=== PATIENT | female | born 1980 | race Caucasian/White ===

== ENCOUNTER → 2019-12-11 11:48 | Outpatient (CLI) | payer BC, SELFPAY ==
[2019-12-11 12:24] LABS: Specimen Label NATERA
[2019-12-11 13:13] LABS: Appearance Urine UA CLEAR; Bilirubin Urine UA NEGATIVE (NEGATIVE); Color Urine UA YELLOW; Glucose Urine UA NEGATIVE (Negative); Ketones Urine UA NEGATIVE (NEGATIVE); Leukocyte Esterase Urine UA NEGATIVE (NEGATIVE); Nitrite Urine UA NEGATIVE (Negative); Occult Blood Urine UA TRACE-LYSED (Negative); Protein Urine UA NEGATIVE (Negative); Specific Gravity Urine UA <=1.005 (1.000-1.035); Urobilinogen Urine UA 0.2 E.U./dL (0.2)
[2019-12-11 13:33] LABS: Add Manual Diff / Slide Review NO; Basophils Absolute Auto 0 /uL (0-100); Basophils Percent Auto 0.3 % (0-2); Eosinophils Absolute Auto 0 /uL (0-450); Eosinophils Percent Auto 0.6 % (2-4); Hematocrit 38.4 % (36-46); Hemoglobin 13.2 g/dL (12.0-16.0); Lymphocytes Absolute Auto 800 /uL (1100-4500); Lymphocytes Percent Auto 11.3 % (25-40); Mean Corpuscular HGB Conc 34.3 % (30-36); Mean Corpuscular Hemoglobin 31.5 PG (26-34); Monocytes Absolute Auto 400 /uL (0-900); Monocytes Percent Auto 5.5 % (3-14); Neutrophils Absolute Auto 6100 /uL (1500-7000); Neutrophils Percent Auto 82.3 % (50-75); Platelet Count 264 X10^3/uL (150-400); Red Blood Cell Count 4.17 X10^6/uL (4.0-5.2); Red Cell Distribution Width 12.8 % (11.6-14.8); White Blood Cell Count 7.4 X10^3/uL (4.5-11.0)
[2019-12-11 13:40] LABS: pH Urine UA 6.5 (4.5-8.0)
[2019-12-11 16:09] LABS: Hepatitis B Surface Antigen NEGATIVE s/c (NEGATIVE); Rubella Antibody IgG 18.1 IU/mL (>15)
[2019-12-11 16:26] LABS: HIV 1 & 2 Ab/Ag 4th Gen Combo NEGATIVE (NEGATIVE); Hep C Virus Ab w/Reflex Quant NEGATIVE s/c (NEGATIVE)
[2019-12-13 20:08] LABS: RPR Screen Nonreactive (Nonreactive)
== END ==
PROVIDERS: PCP Obstetrics & Gynecology; Visit Provider Obstetrics & Gynecology
DX: Z34.81 Encounter for supervision of other normal pregnancy, first trimester (principal)
CPT/HCPCS: 36415; 80055; 81003; 86787; 86803; 86850; 86900; 86901; 87086; 87389

== ENCOUNTER → 2020-01-09 09:12 | Outpatient (CLI) | payer BC, SELFPAY ==
[2020-01-15 14:51] LABS: AFP, Serum 47.5 ng/mL; Calc Gestational Age 18; Maternal Weight 166 lbs; Number of Fetuses 1; Prev Pregnancies Down Syndrome NO
== END ==
PROVIDERS: PCP Obstetrics & Gynecology; Referring Provider Obstetrics & Gynecology; Visit Provider Obstetrics & Gynecology
DX: Z34.82 Encounter for supervision of other normal pregnancy, second trimester (principal)
CPT/HCPCS: 36415; 82105

== ENCOUNTER → 2020-01-19 07:44 | Outpatient (CLI) | payer BC, SELFPAY ==
--- NOTE | 2020-01-19 07:45 | DI.US.S_ITS ---
PROCEDURE: US OB >= 14 WEEKS FETUS INDICATIONS: ANATOMY SCAN OUTSIDE/PRIOR DATING DATA: Last menstrual period (LMP): Unknown. LMP-based estimated date of delivery (JULIANA): Unknown. First dating scan (date and location): This examination. Estimated date of delivery (JULIANA) from first dating scan: 06/11/20. TECHNIQUE: Real-time scanning was performed of the fetus, with image documentation and biometric measurements. Endovaginal scanning: Not performed COMPARISON: None. FINDINGS: General: A single living intrauterine gestation is present. Presentation: Breech. Placenta: Placental position is anterior, without previa. Amniotic fluid index: 10.4 cm, normal range is 5-24 cm. heart rate: 144 beats per minute. Maternal cervical canal: 3.4 cm long. Normal lower limit is 2.5 cm. biometrics: Biparietal diameter: 4.8 cm, 20 weeks 4 days Head circumference: 17.4 cm, 20 weeks zero days Abdominal circumference: 14.7 cm, 20 weeks zero days Femur length: 3.0 cm, 19 weeks 2 days Estimated gestational age from initial scan: 19 weeks 3 days Composite gestational age from present scan: 20 weeks zero days Estimated weight and percentile: 308 g, 62nd percentile Measurement variability for biometric dating: +/- 7 days from 14 weeks to 15 weeks 6 days gestation, +/- 10 days from 16 weeks to 21 weeks 6 days gestation, +/- 2 weeks from 22 weeks to 27 weeks 6 days gestation, +/- 3 weeks for 28 weeks gestation or later. weight reference: 4500 g or EFW >90/95% is considered macrosomia or large for gestational age. EFW <10% is small for gestational age. EFW 5% or less is considered intra-uterine growth restriction. Anatomic survey: Neuro: Ventricles are non-dilated at less than 10 mm. Cisterna magna is normal at 3-11 mm. Cerebellum is normal in size and morphology. Nuchal skin fold: Normal at less than 6 mm between 14-21 weeks gestational age. Face: Nose and lips, facial profile are normal. Spine: No evidence for spina bifida. Heart: 4-chambered heart is present, with normal ventricular outflow tracts. Diaphragm: Diaphragm is intact. Stomach: Left-sided stomach is present. Kidneys: No hydronephrosis. Normal is less than 5 mm in 2nd trimester, less than 7 mm in 3rd trimester. Cord: 3-vessel cord has orthotopic insertion. Bladder: Normal in size. Extremities: All 4 extremities identified. IMPRESSION: Single living intrauterine fetus in breech presentation demonstrating expected interval growth. Normal anatomic survey Dictated by: Flynn Martinez M.D. on 01/19/2020 at 17:04 Approved by: Flynn Martinez M.D. on 01/19/2020 at 17:08
== END ==
PROVIDERS: PCP Obstetrics & Gynecology; Referring Provider Obstetrics & Gynecology; Visit Provider Obstetrics & Gynecology
DX: Z34.82 Encounter for supervision of other normal pregnancy, second trimester (principal); Z3A.20 20 weeks gestation of pregnancy
CPT/HCPCS: 76811

== ENCOUNTER → 2020-03-29 09:04 | Outpatient (CLI) | payer BC, SELFPAY ==
[2020-03-29 10:47] LABS: GTT (PREG) 1 Hour PP 50gm Dose 101 mg/dL (76-139)
[2020-03-29 10:50] LABS: Hematocrit 33.8 % (36-46); Hemoglobin 11.7 g/dL (12.0-16.0)
== END ==
PROVIDERS: PCP Obstetrics & Gynecology; Referring Provider Obstetrics & Gynecology; Visit Provider Obstetrics & Gynecology
DX: O26.899 Other specified pregnancy related conditions, unspecified trimester (principal); Z3A.26 26 weeks gestation of pregnancy; Z67.91 Unspecified blood type, Rh negative
CPT/HCPCS: 36415; 82950; 85014; 85018; 86850

== ENCOUNTER → 2020-05-08 13:45 | Outpatient (CLI) | payer BC, SELFPAY ==
[2020-05-09 11:41] LABS: Strep Grp B PCR POS for Grp B Strep
== END ==
PROVIDERS: PCP Obstetrics & Gynecology; Visit Provider Obstetrics & Gynecology
DX: Z34.83 Encounter for supervision of other normal pregnancy, third trimester (principal); Z3A.35 35 weeks gestation of pregnancy
CPT/HCPCS: 87653

== ENCOUNTER 2020-05-28 21:10 | Inpatient (IN) | payer OTHER, SELFPAY ==
[2020-05-28] VITALS (12 sets, daily range): BP systolic 110–160; BP diastolic 59–75; PULSE 67–78; RESP 16–21; TEMP 36.9; O2SAT 96–97; BMI 29.7
[2020-05-28 21:29] LABS: Add Manual Diff / Slide Review NO; Basophils Absolute Auto 0 /uL (0-100); Basophils Percent Auto 0.5 % (0-2); Eosinophils Absolute Auto 100 /uL (0-450); Eosinophils Percent Auto 0.6 % (2-4); Hematocrit 35.4 % (36-46); Hemoglobin 12.3 g/dL (12.0-16.0); Lymphocytes Absolute Auto 2100 /uL (1100-4500); Lymphocytes Percent Auto 22.5 % (25-40); Mean Corpuscular HGB Conc 34.7 % (30-36); Mean Corpuscular Hemoglobin 31.9 PG (26-34); Mean Corpuscular Volume 91.8 fL (80-100); Monocytes Absolute Auto 700 /uL (0-900); Monocytes Percent Auto 7.2 % (3-14); Neutrophils Absolute Auto 6500 /uL (1500-7000); Neutrophils Percent Auto 69.2 % (50-75); Platelet Count 229 X10^3/uL (150-400); Red Blood Cell Count 3.86 X10^6/uL (4.0-5.2); Red Cell Distribution Width 13.3 % (11.6-14.8); White Blood Cell Count 9.4 X10^3/uL (4.5-11.0)
[2020-05-28 21:35] LABS: INR 0.9 (0.9-1.3); Prothrombin Time 10.7 SECONDS (10.1-12.7)
[2020-05-28 21:40] LABS: Lactate Dehydrogenase 406 U/L (313-618); Uric Acid 4.5 mg/dL (2.5-6.2)
[2020-05-28 21:41] LABS: Albumin 3.5 g/dL (3.5-5.0); Albumin Globulin Ratio 1.3 (1.0-2.8); Alkaline Phosphatase 118 U/L (38-126); Aspartate Aminotransferase 26 IU/L (14-36); BUN Creatinine Ratio 17.3 (6-22); Bilirubin Total 0.5 mg/dL (0.2-1.3); Blood Urea Nitrogen 9 mg/dL (7-17); Calcium 9.1 mg/dL (8.4-10.2); Carbon Dioxide 22 mmol/L (22-32); Chloride 104 mmol/L (98-107); Estimated Glomerular Filt Rate > 60.0 mL/min (>60); Globulin 2.8 g/dL (1.7-4.1); Glucose 110 mg/dL (70-100); Potassium 3.7 mmol/L (3.4-5.1); Sodium 133 mmol/L (137-145); Total Protein 6.3 g/dL (6.3-8.2)
--- NOTE | 2020-05-28 21:56 | DI.CT.S_ITS ---
PROCEDURE: CT HEAD/BRAIN WO CON INDICATIONS: TIA TECHNIQUE: Noncontrast 4.5 mm thick angled axial sections acquired from the foramen magnum to the vertex, with coronal and sagittal reformats. For radiation dose reduction, the following was used: automated exposure control, adjustment of mA and/or kV according to patient size. COMPARISON: None. FINDINGS: Image quality: Excellent. CSF spaces: Basal cisterns are patent. No extra-axial fluid collections. Ventricles are normal in size and shape. Brain: No midline shift. No intracranial masses or hemorrhage. Lugo-white matter interface is normal. Skull and face: Calvarium and visualized facial bones are intact, without suspicious lesions. Sinuses: Visualized sinuses and mastoids are clear. IMPRESSION: No acute intracranial disease process. Dictated by: Rachelle Bonilla MD, PhD on 05/29/2020 at 7:19 Approved by: Rachelle Bonilla MD, PhD on 05/29/2020 at 7:20
--- NOTE | 2020-05-28 22:05 | PC.NURSE ---
Approx 30 min [employer] patient had a right sided peripheral visual disturbance followed by some difficulty finding her words. Stated she knew what she was trying to say but couldn't get it out. I was having a hard time remembering names Patient denies any headache. Some right sided tingling in her hand which has resolved. Patient speaking and answering questions appropriately and feels most symptoms have resolved.
[2020-05-28 22:09] LABS: Creatinine Urine Random 57.9 mg/dL; Protein (Total) Urine Random 10 mg/dL (0-12); Protein Creatinine Ratio Urine 0.17 GRAM/24H
--- NOTE | 2020-05-28 22:18 | ED.NEUROSD ---
HPI - Neuro Symptoms/Deficit General Chief Complaint: OB/Uterine Contractions Stated Complaint: TROUBLE VERBALIZING WORDS Time Seen by Provider: 05/28/20 21:11 Source: patient Mode of arrival: Ambulatory Limitations: no limitations History of Present Illness HPI Narrative: 40F at 38 weeks presents wtith her . Approximately 30 minutes prior to arrival (though the timing is a bit murky) the patient had difficulty with vision. She was looking in a mere and states that she had a hard time seeing the right side of her face. Additionally she had a difficult time speaking, in that she was aware of what she wanted to say but had a difficult time getting out. Furthermore, she had an episode where her right arm felt a bit numb and tingly. She was seen and evaluated in the office yesterday and had stable vital signs and no protein in her urine. She has never had any symptoms such as this before. On her arrival her blood pressure was 160. She denies any headache, chest pain or shortness of breath. She is essentially symptom-free from the time of her arrival. Her OB is Dr. Alan who is aware of her symptoms and sent her in. On Anticoagulants: No Related Data Previous Rx's Medication Instructions Recorded [id number] 1 - 2 tab PO Q4HP PRN #30 tab-cap 07/19/17 cyclobenzaprine 5 mg PO Q8HP PRN #20 tab 07/19/17 oxycodone 10 mg PO Q4HP PRN #30 tab 07/19/17 oxycodone-acetaminophen 0 tab PO Q4HP PRN #30 07/19/17 estradiol [Estrace] 1 gm VAGINAL QDAY #30 gm 08/27/17 norethindrone (contraceptive) 0.35 mg PO QDAY #1 pac 08/27/17 [Ortho Micronor] fluconazole 150 mg tablet 150 mg PO .COMPLEX #2 tab 06/23/18 Allergies Allergy/AdvReac Type Severity Reaction Status Date / Time Penicillins Allergy Unknown Verified 05/28/20 21:24 Review of Systems Constitutional Constitutional: Denies chills, Denies fatigue, Denies fever(s), Denies frequent falls, Denies lethargy and Denies weakness Eyes Eyes: Denies change in vision, Denies eye discharge, Denies irritation and Reports loss of vision ENT Ears, Nose, Mouth, and Throat: Denies change in voice, Denies dizziness, Denies neck pain, Denies sore throat and Denies throat swelling Cardiovascular Cardiovascular: Denies chest pain, Denies irregular heart rhythm, Denies lightheadedness, Denies palpitations, Denies dyspnea, Denies dyspnea on exertion and Denies orthopnea Respiratory Respiratory: Denies cough, Denies dyspnea, Denies dyspnea on exertion and Denies wheezing Gastrointestinal Gastrointestinal: Denies abdominal pain, Denies change in bowel habits, Denies diarrhea, Denies nausea and Denies vomiting Musculoskeletal Musculoskeletal: Denies neck pain and Denies numbness Integumentary/Breasts Skin/Breast: Denies pruritus, Denies erythema, Denies rash and Denies wounds Neurologic Neurologic: Reports abnormal speech, Denies behavioral changes, Denies confusion, Denies dizziness, Denies frequent falls, Reports loss of vision, Denies numbness and Denies weakness Psychiatric Psychiatric: Denies anxiety, Denies behavioral changes, Denies confusion, Denies depression, Denies homicidal ideation and Denies suicidal ideation Endocrine Endocrine: Denies fatigue, Denies flushing and Denies palpitations Hematologic/Lymphatic Hematologic/Lymphatic: Denies easy bruising Allergic/Immunologic Allergic/Immunologic: Denies urticaria, Denies throat swelling and Denies wheezing Patient History Surgical History History of breast augmentation (Resolved 11/25/16) Status post delivery (Resolved 07/16/17) Status post loop electrosurgical excision procedure (LEEP) of cervix (Resolved 12/14/16) Status post primary low transverse section (Resolved) [place] teeth removed (Resolved) Family History Grandfather Coronary artery disease Grandmother Coronary artery disease Mother Twin Social History Smoking Status: Never smoker Smoking Status: Never smoker Substance Use Type: does not use Exam Narrative Exam Narrative: GENERAL: [40] year old patient appears stated age. Well-nourished, well-developed patient, in mild distress. HEAD: Atraumatic. Normocephalic. EYES: Pupils equal round and reactive. Extraocular motions intact. No scleral icterus. No injection or drainage. ENT: Nose without bleeding, purulent drainage. Throat without erythema, tonsillar hypertrophy or exudate. Airway patent. NECK: Trachea midline. Non tender CARDIOVASCULAR: Regular rate and rhythm without murmurs, gallops, or rubs. RESPIRATORY: Clear to auscultation. Breath sounds equal bilaterally. No wheezes, rales, or rhonchi. GASTROINTESTINAL: Abdomen soft, non-tender, nondistended. EXTREMITIES: No edema or joint tenderness. BACK: Nontender without deformity or crepitance. No flank tenderness. NEURO: AOx3. SKIN: No rash or erythema of visible areas NIH Stroke Scale 1a. LOC: Patient is alert and keenly responsive (0) 1b. LOC Questions: Patient answers both LOC questions accurately (0) 1c. LOC Commands: Patient performs both tasks correctly (0) 2. Best Gaze: Normal (0) 3. Visual: No visual loss (0) 4. Facial palsy: Normal symmetrical movements (0) 5. Motor arm: No drift (0) 6. Motor leg: No drift (0) 7. Limb ataxia: Absent (0) 8. Sensory: Normal (0) 9. Best language: No aphasia; normal (0) 10. Dysarthria: Normal (0) 11. Extinction and inattention: No abnormality (0) NIHSS: 0 Initial Vital Signs Initial Vital Signs: Vital Signs Temperature 98.4 F 05/28/20 21:10 Pulse Rate 69 05/28/20 21:10 Respiratory Rate 16 05/28/20 21:10 Blood Pressure 160/75 H 05/28/20 21:10 Pulse Oximetry 97 05/28/20 21:10 Course Orders Ordered: ED Orders 05/28/20 21:18 Complete Blood Count AUTO DIFF Stat Comprehensive Metabolic Panel Stat Lactate Dehydrogenase Stat Prothrombin Time INR Stat Uric Acid Stat 05/28/20 21:36 Protein Creatinine Ratio Urine Stat 05/28/20 21:56 CT head/brain wo con Stat Consultations Consultation #1: early contact with Dr. Alan who will see patient in the ED Vital Signs Vital signs: Vital Signs - 8 hr 05/28/20 21:10 05/28/20 21:15 05/28/20 21:30 Temperature 98.4 F Pulse Rate 69 78 74 Respiratory Rate 16 Blood Pressure 160/75 H 160/75 H 140/72 Pulse Oximetry 97 97 05/28/20 21:45 05/28/20 22:00 05/28/20 22:30 Temperature Pulse Rate 75 69 77 Respiratory Rate 21 20 Blood Pressure 121/66 114/59 L Pulse Oximetry 97 96 96 05/28/20 22:32 05/28/20 22:45 Temperature Pulse Rate 78 70 Respiratory Rate Blood Pressure 130/74 119/69 Pulse Oximetry 96 96 MDM - Neuro Symptoms/Deficit Lab Data Result diagrams: 05/28/20 21:18 05/28/20 21:18 Labs: Lab Results 05/28/20 05/28/20 05/28/20 Range/Units 21:18 21:18 21:18 WBC 9.4 (4.5-11.0) X10^3/uL RBC 3.86 L (4.0-5.2) X10^6/uL Hgb 12.3 (12.0-16.0) g/dL Hct 35.4 L (36-46) % MCV 91.8 (80-100) fL MCH 31.9 (26-34) PG MCHC 34.7 (30-36) % RDW 13.3 (11.6-14.8) % Plt Count 229 (150-400) X10^3/uL Neut % (Auto) 69.2 (50-75) % Lymph % (Auto) 22.5 L (25-40) % Evangeline % (Auto) 7.2 (3-14) % Eos % (Auto) 0.6 L (2-4) % Baso % (Auto) 0.5 (0-2) % Neut # (Auto) 6500 (2109-2115) /uL Lymph # (Auto) 2100 (3992-5327) /uL Evangeline # (Auto) 700 (0-900) /uL Eos # (Auto) 100 (0-450) /uL Baso # (Auto) 0 (0-100) /uL PT 10.7 (10.1-12.7) SECONDS INR 0.9 (0.9-1.3) Sodium (137-145) mmol/L Potassium (3.4-5.1) mmol/L Chloride (98-107) mmol/L Carbon Dioxide (22-32) mmol/L BUN (7-17) mg/dL Creatinine (0.52-1.04) mg/dL Estimated GFR (>60) mL/min BUN/Creatinine Ratio (6-22) Glucose (70-100) mg/dL Uric Acid 4.5 (2.5-6.2) mg/dL Calcium (8.4-10.2) mg/dL Total Bilirubin (0.2-1.3) mg/dL AST (14-36) IU/L Alkaline Phosphatase (38-126) U/L Lactate Dehydrogenase 406 (313-618) U/L Total Protein (6.3-8.2) g/dL Albumin (3.5-5.0) g/dL Globulin (1.7-4.1) g/dL Albumin/Globulin Ratio (1.0-2.8) U Random Total Protein (0-12) mg/dL Urine Creatinine mg/dL Protein/Creatinin Ratio GRAM/24H 05/28/20 05/28/20 Range/Units 21:18 21:36 WBC (4.5-11.0) X10^3/uL RBC (4.0-5.2) X10^6/uL Hgb (12.0-16.0) g/dL Hct (36-46) % MCV (80-100) fL MCH (26-34) PG MCHC (30-36) % RDW (11.6-14.8) % Plt Count (150-400) X10^3/uL Neut % (Auto) (50-75) % Lymph % (Auto) (25-40) % Evangeline % (Auto) (3-14) % Eos % (Auto) (2-4) % Baso % (Auto) (0-2) % Neut # (Auto) (1280-5803) /uL Lymph # (Auto) (7196-2973) /uL Evangeline # (Auto) (0-900) /uL Eos # (Auto) (0-450) /uL Baso # (Auto) (0-100) /uL PT (10.1-12.7) SECONDS INR (0.9-1.3) Sodium 133 L (137-145) mmol/L Potassium 3.7 (3.4-5.1) mmol/L Chloride 104 (98-107) mmol/L Carbon Dioxide 22 (22-32) mmol/L BUN 9 (7-17) mg/dL Creatinine 0.52 (0.52-1.04) mg/dL Estimated GFR > 60.0 (>60) mL/min BUN/Creatinine Ratio 17.3 (6-22) Glucose 110 H (70-100) mg/dL Uric Acid (2.5-6.2) mg/dL Calcium 9.1 (8.4-10.2) mg/dL Total Bilirubin 0.5 (0.2-1.3) mg/dL AST 26 (14-36) IU/L Alkaline Phosphatase 118 (38-126) U/L Lactate Dehydrogenase (313-618) U/L Total Protein 6.3 (6.3-8.2) g/dL Albumin 3.5 (3.5-5.0) g/dL Globulin 2.8 (1.7-4.1) g/dL Albumin/Globulin Ratio 1.3 (1.0-2.8) U Random Total Protein 10 (0-12) mg/dL Urine Creatinine 57.9 mg/dL Protein/Creatinin Ratio 0.17 GRAM/24H Urine Dip Bedside Urine Glucose Negative Bedside Urine Bilirubin - Negative Bedside Urine Ketone - Negative Urine Specific Stafford 1.015 Bedside Urine Occult Blood - Negative Bedside Urine pH 6.0 Bedside Urine Protein - Negative Bedside Urine Urobilinogen - Negative Bedside Urine Nitrite - Negative Bedside Urine Leukocytes - Negative Esterase Imaging Data CT scan - head: Attestation: I personally reviewed and interpreted this imaging study as follows: My Impression: DARNELL Radiologist's Impression: DARNELL MDM Narrative Medical decision making narrative: TIA vs. pre-eclampsia. Symptoms are quite lateralizing for pre-eclampsia and labs are reassuring, but initial BP in 160s. Will admit for further characterization of illness, ongoing evaluation. Discharge Plan Departure Patient Disposition: Admitted as Observation Clinical Impression: Brain TIA Referrals: [place],MD Jael [Primary Care Provider] -
--- NOTE | 2020-05-28 23:06 | P.HPOB_ITS ---
OB HPI Date/Time Date of admission: 05/28/20 Date Patient Seen: 05/28/20 Time Patient Seen: 20:00 History of Present Condition Chief complaint: TROUBLE VERBALIZING WORDS : 2 Para: 1 Estimated Date of Delivery: 06/11/20 Estimated Gestational Age (weeks): 38 Narrative: Monica James is a 40 year old @38+0 by 8 week US presenting with new onset, transient right visual field blurry vision for 20-30 minutes, which resolved but was followed by 20-30 minutes of expressive aphasia. Both of these symptoms had resolved by presentation to the ED, and the patient reports that she now feels back to normal with no headaches, visual changes, RUQ or chest pain, nausea, vomiting, malaise, swelling, or obstetrical complaints. The patient reports that she had a transient episode of similar visual changes 1 week ago that lasted 20 minutes, but has had none of the above symptoms otherwise. She has had an otherwise uncomplicated with no hypertension, diabetes, or any other medical complaints, appropriate weight gain, normal ultrasounds, and low risk cfDNA. She has a history of a term CS for failure to progress, and was scheduled for repeat section at 39+1. She denies any history of migraines or other headaches, hypertension, or any other medical complaints beyond back pain, except for spinal headaches after her first delivery which resolved. Indications Operative indications ( section): previous uterine surgery History of Present care: good care, initiated at week # (8) and pounds weight gain (30) Dating criteria: based on 1st trimester US only (LMP uncertain) Ultrasounds: normal 1st trimester US and normal mid trimester US Obstetrical complications: none Medical complications: none Preadmission Labs Blood type: 0 (-) negative (rhogam on 03/29/2020) -: Antibody screen: negative, GBS status: positive, HBsAG: negative, HIV: negative and RPR/VDLR: negative -: Chlamydia screen: not detected and Gonorrhea screen: not detected -: Rubella: immune and Varicella: immune PAP: Normal Cell-free DNA: low risk male fetus Urine: no growth 1 hr GTT: 101 Prior (ies) History: 07/2017: pCS, 40+5, F, 7#10, arrest of descent in second stage, failed forceps, c/b spinal headache Evaluation Evaluation Baseline heart rate: 120 Variability: Moderate (11-25) monitor accelerations: Present monitor decelerations: Absent Contraction Frequency (minutes): 10 Category of Tracing: I Laboratory results: Laboratory Tests 05/28/20 05/28/20 05/28/20 21:18 21:18 21:18 WBC 9.4 RBC 3.86 L Hgb 12.3 Hct 35.4 L MCV 91.8 MCH 31.9 MCHC 34.7 RDW 13.3 Plt Count 229 Neut % (Auto) 69.2 Lymph % (Auto) 22.5 L Stafford % (Auto) 7.2 Eos % (Auto) 0.6 L Baso % (Auto) 0.5 Neut # (Auto) 6500 Lymph # (Auto) 2100 [place] # (Auto) 700 Eos # (Auto) 100 Baso # (Auto) 0 PT 10.7 INR 0.9 Sodium Potassium Chloride Carbon Dioxide BUN Creatinine Estimated GFR BUN/Creatinine Ratio Glucose Uric Acid 4.5 Calcium Total Bilirubin AST Alkaline Phosphatase Lactate Dehydrogenase 406 Total Protein Albumin Globulin Albumin/Globulin Ratio U Random Total Protein Urine Creatinine Protein/Creatinin Ratio 05/28/20 05/28/20 21:18 21:36 WBC RBC Hgb Hct MCV MCH MCHC RDW Plt Count Neut % (Auto) Lymph % (Auto) [place] % (Auto) Eos % (Auto) Baso % (Auto) Neut # (Auto) Lymph # (Auto) [place] # (Auto) Eos # (Auto) Baso # (Auto) PT INR Sodium 133 L Potassium 3.7 Chloride 104 Carbon Dioxide 22 BUN 9 Creatinine 0.52 Estimated GFR > 60.0 BUN/Creatinine Ratio 17.3 Glucose 110 H Uric Acid Calcium 9.1 Total Bilirubin 0.5 AST 26 Alkaline Phosphatase 118 Lactate Dehydrogenase Total Protein 6.3 Albumin 3.5 Globulin 2.8 Albumin/Globulin Ratio 1.3 U Random Total Protein 10 Urine Creatinine 57.9 Protein/Creatinin Ratio 0.17 [facility] History History of breast augmentation (Resolved 11/25/16) Status post delivery (Resolved 07/16/17) Status post loop electrosurgical excision procedure (LEEP) of cervix (Resolved 12/14/16) Status post primary low transverse section (Resolved) [place] teeth removed (Resolved) Family History Grandfather Coronary artery disease Grandmother Coronary artery disease Mother Twin Social History Smoking Status: Never smoker Meds Home Medications and Allergies Home Medications Medication Instructions Recorded Confirmed Type [id number]-[id number] 1 - 2 tab PO Q4HP PRN #30 tab-cap 07/19/17 Rx cyclobenzaprine 5 mg PO Q8HP PRN #20 tab 07/19/17 Rx oxycodone 10 mg PO Q4HP PRN #30 tab 07/19/17 Rx oxycodone-acetaminophen 0 tab PO Q4HP PRN #30 07/19/17 Rx estradiol [Estrace] 1 gm VAGINAL QDAY #30 gm 08/27/17 Rx norethindrone (contraceptive) 0.35 mg PO QDAY #1 pac 08/27/17 Rx [Ortho Micronor] fluconazole 150 mg tablet 150 mg PO .COMPLEX #2 tab 06/23/18 Rx Allergies Allergy/AdvReac Type Severity Reaction Status Date / Time Penicillins Allergy Unknown Verified 05/28/20 21:24 Review of Systems Constitutional Constitutional: Reports as per HPI Eyes Eyes: Reports as per HPI ENT Ears, Nose, Mouth, and Throat: Yes system reviewed and no additional complaints, except as documented Cardiovascular Cardiovascular: Reports system reviewed and no additional complaints, except as documented Respiratory Respiratory: Reports system reviewed and no additional complaints, except as documented Gastrointestinal Gastrointestinal: Reports system reviewed and no additional complaints, except as documented Genitourinary Genitourinary: Reports system reviewed and no additional complaints, except as documented Musculoskeletal Musculoskeletal: Reports system reviewed and no additional complaints, except as documented Neurologic Neurologic: Reports as per HPI Endocrine Endocrine: Reports system reviewed and no additional complaints, except as documented Hematologic/Lymphatic Hematologic/Lymphatic: Reports system reviewed and no additional complaints, except as documented Exam Vital Signs (past 8 hours): - 05/28/20 21:10 05/28/20 21:15 05/28/20 21:30 Temperature 98.4 F Pulse Rate 69 78 74 Respiratory Rate 16 Blood Pressure 160/75 H 160/75 H 140/72 Pulse Oximetry 97 97 05/28/20 21:45 05/28/20 22:00 05/28/20 22:30 Temperature Pulse Rate 75 69 77 Respiratory Rate 21 20 Blood Pressure 121/66 114/59 L Pulse Oximetry 97 96 96 05/28/20 22:32 05/28/20 22:45 Temperature Pulse Rate 78 70 Respiratory Rate Blood Pressure 130/74 119/69 Pulse Oximetry 96 96 Oxygen Delivery Method Room Air Const General: cooperative, healthy appearing and comfortable Eyes General: appearance normal, both eyes and all related structures Visual Cheatham: normal visual cheatham by confrontation GI Palpation: soft and No tender Objective Imaging CT scan - head: Radiologist's impression: Negative for abnormality per preliminary read Labs Result Diagrams: 05/28/20 21:18 05/28/20 21:18 Labs: Laboratory Results - last 24 hr 05/28/20 05/28/20 05/28/20 21:18 21:18 21:18 WBC 9.4 RBC 3.86 L Hgb 12.3 Hct 35.4 L MCV 91.8 MCH 31.9 MCHC 34.7 RDW 13.3 Plt Count 229 Neut % (Auto) 69.2 Lymph % (Auto) 22.5 L [place] % (Auto) 7.2 Eos % (Auto) 0.6 L Baso % (Auto) 0.5 Neut # (Auto) 6500 Lymph # (Auto) 2100 [place] # (Auto) 700 Eos # (Auto) 100 Baso # (Auto) 0 PT 10.7 INR 0.9 Sodium Potassium Chloride Carbon Dioxide BUN Creatinine Estimated GFR BUN/Creatinine Ratio Glucose Uric Acid 4.5 Calcium Total Bilirubin AST Alkaline Phosphatase Lactate Dehydrogenase 406 Total Protein Albumin Globulin Albumin/Globulin Ratio U Random Total Protein Urine Creatinine Protein/Creatinin Ratio 05/28/20 05/28/20 21:18 21:36 WBC RBC Hgb Hct MCV MCH MCHC RDW Plt Count Neut % (Auto) Lymph % (Auto) [place] % (Auto) Eos % (Auto) Baso % (Auto) Neut # (Auto) Lymph # (Auto) [place] # (Auto) Eos # (Auto) Baso # (Auto) PT INR Sodium 133 L Potassium 3.7 Chloride 104 Carbon Dioxide 22 BUN 9 Creatinine 0.52 Estimated GFR > 60.0 BUN/Creatinine Ratio 17.3 Glucose 110 H Uric Acid Calcium 9.1 Total Bilirubin 0.5 AST 26 Alkaline Phosphatase 118 Lactate Dehydrogenase Total Protein 6.3 Albumin 3.5 Globulin 2.8 Albumin/Globulin Ratio 1.3 U Random Total Protein 10 Urine Creatinine 57.9 Protein/Creatinin Ratio 0.17 Assessment and Plan Assessment and Plan Assessment and Plan narrative: This patient presents with visual changes and expressive aphasia, both of which have now resolved. She had initially elevated BPs that were elevated x2 over a 20 minute span before normalizing to the 110s/50s-60s, and preeclampsia labs are normal. Her neurologic signs were significantly more focal than those normally associated with severe preeclampsia or hypertension, making the diagnosis of preeclampsia or PIH unclear. These diagnoses are high on the differential, but other possibilities include TIA, undiagnosed aneurysm or AVM, or complex migraine. Head CT was negative for ongoing intracranial process, though an MRI/A/V without contrast would be more sensitive for underlying structural abnormality. Given the patient's current normotension and stability and reassuring status, evaluation for other causes of focal neurologic changes is important to safe delivery planning. She will be admitted for further imaging available in the morning, now in 8 hours, close monitoring of vitals, serial neuro exams, and repeat PIH labs. Low threshold to obtain medicine consult for discussion of differential and possible neurology consult. The above was discussed with the patient and her partner, including the risks and benefits of each option. They vocalized understanding, and all questions were answered. - NPO after 2AM, anticipating that earliest delivery would be after MRI/A/V unless emergent due to clinical status changes - Repeat PEC labs in AM, magnesium sulfate if blood pressures become elevated - q2H VS and neuro checks - Admit to medicine floor with close monitoring, consult L&D nursing for obstetric complaints
[2020-05-28 23:33] LABS: COVID19 -Nasal RAPID Negative (Negative)
[2020-05-29] VITALS (13 sets, daily range): BP systolic 105–119; BP diastolic 46–85; PULSE 57–75; RESP 12–19; TEMP 36.2–36.8; O2SAT 96–98; BMI 29.7
--- NOTE | 2020-05-29 | DI.MRI.S_ITS ---
PROCEDURE: MR ANGIO HEAD WO CON INDICATIONS: VISION CHANGES TECHNIQUE: Noncontrast axial 3-D [id number] MR angiogram, with 3-dimensional maximum intensity projection (MIP) reformats of the internal carotid arteries and posterior circulation then performed. COMPARISON: None. FINDINGS: Image quality: Diagnostic. Anterior circulation: Intracranial internal carotid arteries demonstrate normal size and intraluminal flow signal. The flow within the paired anterior cerebral arteries is normal and symmetric. The flow within the middle cerebral arteries is normal and symmetric. The anterior communicating artery is seen. No stenoses, occlusions, or aneurysms. However, please note that the retinal arteries are not adequately evaluated. Posterior circulation: Visualized portions of the vertebral arteries demonstrate normal caliber, and join to form a normal appearing basilar artery. The flow within the posterior cerebral arteries is normal and symmetric. No stenoses, occlusions, or aneurysms. IMPRESSION: The intracranial arteries are widely patent without evidence of occlusion, high-grade narrowing, or aneurysm. Dictated by: Terry Roth M.D. on 05/29/2020 at 10:22 Approved by: Terry Roth M.D. on 05/29/2020 at 10:23
--- NOTE | 2020-05-29 00:14 | DI.MRI.S_ITS ---
PROCEDURE: MR HEAD/BRAIN WO CON INDICATIONS: focal deficits in TECHNIQUE: Noncontrast axial T1 spin echo, axial T2 fast spin echo, sagittal and axial FLAIR, coronal T2 fast spin echo, axial gradient echo, axial diffusion and ADC through the brain. COMPARISON: None. FINDINGS: Image quality: Diagnostic. CSF Spaces: Basal cisterns are patent. No extra-axial fluid collections. Ventricles are normal in size and shape. Brain: No intracranial masses or hemorrhage. [place]/white matter interface is normal. Brainstem appears normal. Diffusion-weighted images demonstrate no acute ischemic insult. No chronic ischemic insults. Normal intravascular flow voids are present. Skull and face: Calvarium has normal marrow signal. Orbits appear normal. Sinuses: Sinuses and mastoids are clear. IMPRESSION: Negative head CT. No acute intracranial hemorrhage or ischemia. No parenchymal lesions. Dictated by: Terry Roth M.D. on 05/29/2020 at 10:14 Approved by: Terry Roth M.D. on 05/29/2020 at 10:20
[2020-05-29 06:24] LABS: Add Manual Diff / Slide Review NO; Basophils Absolute Auto 0 /uL (0-100); Basophils Percent Auto 0.5 % (0-2); Eosinophils Absolute Auto 0 /uL (0-450); Eosinophils Percent Auto 0.6 % (2-4); Hemoglobin 11.2 g/dL (12.0-16.0); Lymphocytes Absolute Auto 1500 /uL (1100-4500); Lymphocytes Percent Auto 19.3 % (25-40); Mean Corpuscular HGB Conc 34.8 % (30-36); Mean Corpuscular Hemoglobin 31.9 PG (26-34); Mean Corpuscular Volume 91.6 fL (80-100); Monocytes Absolute Auto 700 /uL (0-900); Monocytes Percent Auto 8.9 % (3-14); Neutrophils Absolute Auto 5700 /uL (1500-7000); Neutrophils Percent Auto 70.7 % (50-75); Platelet Count 177 X10^3/uL (150-400); Red Cell Distribution Width 13.2 % (11.6-14.8)
[2020-05-29 06:40] LABS: Aspartate Aminotransferase 22 IU/L (14-36); BUN Creatinine Ratio 19.6 (6-22); Blood Urea Nitrogen 9 mg/dL (7-17); Estimated Glomerular Filt Rate > 60.0 mL/min (>60); Uric Acid 4.2 mg/dL (2.5-6.2)
--- NOTE | 2020-05-29 06:55 | PC.NURSE ---
Pt admitted as AxOx4. Denies any vision changes. No neurological deficits noted. Neuro assessed q2h Kept NPO after 2am Vitals good; per order: Keep BP < 135/85 or call provider Voiding well B/L SCDs placed on pt
--- NOTE | 2020-05-29 07:47 | P.PN_ITS ---
Subjective Subjective Date Patient Seen: 05/29/20 Time Patient Seen: 08:02 Interval history: This patient is admitted for monitoring of vitals and symptoms and for MRI/A/V after being admitted with transient visual changes and aphasia. She had initially elevated blood pressures that quickly normalized and have remained within the normal range overnight. Her symptoms have remained resolved, and she reports no headaches, RUQ pain, further visual changes, or any ob stetrical complaints. She reports copious movement but no contractions, vaginal bleeding, or loss of fluid. Exam Vital Signs (past 8 hours): - 05/29/20 00:00 05/29/20 00:10 05/29/20 02:00 Temperature 97.1 F L Pulse Rate 62 70 66 Respiratory Rate 18 18 Blood Pressure 116/66 119/59 L 116/58 L Pulse Oximetry 98 96 97 05/29/20 04:00 05/29/20 06:00 05/29/20 07:38 Temperature 97.6 F 97.2 F L Pulse Rate 74 60 71 Respiratory Rate 18 18 18 Blood Pressure 112/54 L 115/59 L 106/63 Pulse Oximetry 98 98 98 Oxygen Delivery Method Room Air Oxygen Flow Rate 0 Const General: cooperative, healthy appearing and comfortable GI Palpation: soft and No tender Neuro General: patient alert, patient awake, patient oriented x3 and CN's II-XI intact bilaterally Cranial Nerves: CN's II-XI intact bilaterally Cognition: normal cognition Speech: speech normal Objective Labs Result Diagrams: 05/29/20 06:05 05/29/20 06:05 Labs: Laboratory Results - last 24 hr 05/28/20 05/28/20 05/28/20 21:18 21:18 21:18 WBC 9.4 RBC 3.86 L Hgb 12.3 Hct 35.4 L MCV 91.8 MCH 31.9 MCHC 34.7 RDW 13.3 Plt Count 229 Neut % (Auto) 69.2 Lymph % (Auto) 22.5 L [place] % (Auto) 7.2 Eos % (Auto) 0.6 L Baso % (Auto) 0.5 Neut # (Auto) 6500 Lymph # (Auto) 2100 [place] # (Auto) 700 Eos # (Auto) 100 Baso # (Auto) 0 PT 10.7 INR 0.9 Sodium Potassium Chloride Carbon Dioxide BUN Creatinine Estimated GFR BUN/Creatinine Ratio Glucose Uric Acid 4.5 Calcium Total Bilirubin AST Alkaline Phosphatase Lactate Dehydrogenase 406 Total Protein Albumin Globulin Albumin/Globulin Ratio U Random Total Protein Urine Creatinine Protein/Creatinin Ratio COVID-19 PCR 05/28/20 05/28/20 05/28/20 21:18 21:36 22:14 WBC RBC Hgb Hct MCV MCH MCHC RDW Plt Count Neut % (Auto) Lymph % (Auto) [place] % (Auto) Eos % (Auto) Baso % (Auto) Neut # (Auto) Lymph # (Auto) [place] # (Auto) Eos # (Auto) Baso # (Auto) PT INR Sodium 133 L Potassium 3.7 Chloride 104 Carbon Dioxide 22 BUN 9 Creatinine 0.52 Estimated GFR > 60.0 BUN/Creatinine Ratio 17.3 Glucose 110 H Uric Acid Calcium 9.1 Total Bilirubin 0.5 AST 26 Alkaline Phosphatase 118 Lactate Dehydrogenase Total Protein 6.3 Albumin 3.5 Globulin 2.8 Albumin/Globulin Ratio 1.3 U Random Total Protein 10 Urine Creatinine 57.9 Protein/Creatinin Ratio 0.17 COVID-19 PCR Negative 05/29/20 05/29/20 06:05 06:05 WBC 8.0 RBC 3.50 L Hgb 11.2 L Hct 32.0 L MCV 91.6 MCH 31.9 MCHC 34.8 RDW 13.2 Plt Count 177 Neut % (Auto) 70.7 Lymph % (Auto) 19.3 L [place] % (Auto) 8.9 Eos % (Auto) 0.6 L Baso % (Auto) 0.5 Neut # (Auto) 5700 Lymph # (Auto) 1500 [place] # (Auto) 700 Eos # (Auto) 0 Baso # (Auto) 0 PT INR Sodium Potassium Chloride Carbon Dioxide BUN 9 Creatinine 0.46 L Estimated GFR > 60.0 BUN/Creatinine Ratio 19.6 Glucose Uric Acid 4.2 Calcium Total Bilirubin AST 22 Alkaline Phosphatase Lactate Dehydrogenase Total Protein Albumin Globulin Albumin/Globulin Ratio U Random Total Protein Urine Creatinine Protein/Creatinin Ratio COVID-19 PCR Assessment & Plan Assessment and plan (1) Brain TIA: Status: Acute Assessment & Plan narrative: This patient presented to the ED with transient visual changes and aphasia, now resolved, with non-sustained severe BP elevation with normotension since and negative preeclampsia labs x2. She reports feeling well this AM, back to baseline with a normal exam. She is awaiting MRI/A/V without contrast to evaluate for structural abnormalities. We discussed that if this is normal, I will pursue a neurology teleconsult, but that the differential includes atypical PIH, complex migraine, or TIA, and that in the case of any of these, delivery would likely be recommended to present progression of underlying disease process or recurrence of symptoms. Patient to continue clear liquids until after her MRI.
--- NOTE | 2020-05-29 10:38 | PC.NURSE ---
Pt to Radiology for MRI via w/c.
--- NOTE | 2020-05-29 11:41 | PC.NURSE ---
Addendum entered by Mera Park R.N. 05/29/20 15:28: 0900 Pt reports very active movement of her baby. Visible and palpable movement noted during abdominal exam. Addendum entered by Mera Park R.N. 05/29/20 11:42: Denies any negative neuro symptoms-no dizziness, headache, vision changes, light headedness or numbness and tingling. Denies needs at this time. Original Note: Pt back from radiology and back in bed visiting with spouse at the bedside.
--- NOTE | 2020-05-29 12:31 | CM.DANOTE ---
DCP/Assessment: Reviewed chart. Patient is 40yr female admitted to [facility] with trouble verbalizing words. Patient currently 38wks . PCP/OB is Dr. Alan. Primary payor is 1)[facility] [place]. Met with patient and spouse/Reid explained CM/SW role. Patient may possibly be going downstairs for . Patient underwent MRI today. No d/c planning needs identified. Per patient all symptoms resolved. P: Home with supportive family and possibly at time of d/c. NIA Donis Discharge Planning/Care Management CM Discharge Assessment Start: 05/29/20 12:22 Freq: Status: Active Protocol: Document 05/29/20 12:22 KJS (Rec: 05/29/20 12:31 KJS [id number]) Discharge Planning Assessment Assigned Occ Therapist NIA Donis Contact Information Reid James (spouse) # Advance Directives? No History Provided By Patient,Significant Other, Medical Record Prior Living Arrangements House Household Members spouse,children Type of transporation used prior to Drives own vehicle admit Independent with ADL's Yes Is patient alert and oriented? Yes Caregiver for Another Yes: children Barriers to Discharge No Discharge Plan Home Transportation Arrangement Family to provide transportation. Referrals Initiated None needed Whiteboard Updated in Patient Room with Yes name and ext. # of Occ Therapist Review Status In Process Next Review Type Continued Stay Review
[2020-05-29 14:35] LABS: Alanine Aminotransferase 13 IU/L (<35); HEMOLYSIS 26 (0-50)
--- NOTE | 2020-05-29 16:40 | PC.NURSE ---
pt transferred to OB. report given to nurse Braswell. PIV SL. denied pain. cms+. independent.
--- NOTE | 2020-05-29 17:07 | PM.PREOP ---
Pre-operative Note COVID-19 COVID-19 status: Negative Result date/Date tested (Pos, Neg/Pending): 05/28/20 Interval Note History & Physical reviewed/Exam performed by Physician: Yes Changes to H&P: No H&P completed within 30 days and has changed as indicated here:: Neurology consulted by phone after negative MRI, and agree that given localized neurologic symptoms and normal labs and BPs, the most likely cause of her presentation is a TIA. We discussed timing of delivery, and the patient is for repeat section followed by prophylactic anticoagulation, with neurology follow up and echo with bubble study. The differential, recommendations, and clinical presentation to date were discussed with the patient and her spouse, and all questions were answered and informed consent augmented with the above.
--- NOTE | 2020-05-29 17:15 | PM.OBPNLAB ---
Date/Time Date Patient Seen: 05/29/20 Time Patient Seen: 17:16 Pelvic Exam Comments: Patient well appearing, denies neurologic or obstetric complaints. Status status: Category l Heart Rate Baseline: 125 Monitor Accelerations: Present Monitor Decelerations: Absent Monitor Variability: Moderate Assessment and Plan Plan: Comments: 117/66, HR 61
[2020-05-29] MEDS: LACTATED RINGERS 1,000 ML 100 ML IV ×2 (17:24→19:30)
[2020-05-29] MEDS: CEFAZOLIN 2 GM/100 ML FROZ.PIGGY IV (17:33)
--- NOTE | 2020-05-29 18:18 | SUR.OPER ---
Supine on Padded OR bed, head on pillow, safety belt at thigh, arms secured on padded arm boards at <90 degrees abduction. Bump under right buttock. Legs uncrossed with pillow under knees, gel pad to heels, tape over blanket to lower legs.
[2020-05-29] MEDS: KETOROLAC 30 MG/ML VIAL IV (18:30)
--- NOTE | 2020-05-29 18:35 | SUR.OPER ---
live male born at 1807
--- NOTE | 2020-05-29 19:03 | PM.OP.1 ---
Operative Date/Time/Diagnoses Date of procedure: 05/29/20 Time of procedure: 18:03 Pre-op diagnosis: prior CS, TIA Post-op diagnosis: same Procedure & Clinicians Procedure: repeat section Same procedure as scheduled: Yes Indications: history of prior section, transient ischemic attack Surgeon: Jael Alan Party Host/Hostess: Sia Brian Anesthesia Type: Spinal Operative Notes Findings: Moderate scar tissue at level of fascia. Normal uterus, tubes, ovaries. Male fetus in cephalic presentation, Apgars ___, weight 7#9. Closure Type: primary Specimen(s): none sent Procedure in detail: EBL: 500ccs Fluids:1100ccs UOP: 200ccs concentrated yellow urine Findings: Male infant in cephalic presentation, Apgars [ ], weight 7#9, normal uterus, tubes, ovaries. Procedures: The patient was taken to the operating room where spinal anesthesia was placed and found to be adequate. SCDs were placed and running. She was prepped and draped in the normal sterile fashion in the dorsal supine position with a leftward tilt. A Pfannenstiel skin incision was made with a scalpel and carried through to the underlying layer of fascia. The fascia was incised in the midline and the incision extended laterally with Arredondo scissors. The inferior aspect of this incision was grasped with Efrain clamps, elevated. and the underlying rectus muscles dissected off bluntly. Attention was then turned to the superior aspect of this incision which, in a similar fashion, was grasped, tented up with the Efrain clamps, and the rectus muscles dissected off bluntly. The rectus muscles were then in the midline, and the peritoneum identified, tented up, and entered sharply with Metzenbaum scissors. The peritoneal incision was extended superiorly and inferiorly with good visualization of the bladder. The bladder blade was inserted and the vesical uterine peritoneum identified, grasped with pickups, and entered sharply with the Metzenbaum scissors. This incision was extended laterally, and the bladder flap created digitally. The bladder blade was then reinserted and the lower uterine segment incised in transverse fashion with the scalpel. The uterine incision was bluntly extended laterally. The bladder blade was removed, and the 's head delivered atraumatically with assistance of one pull of a vacuum. After 45 seconds of delayed cord clamping, the cord was clamped and cut. The nose and mouth were suctioned as needed with a bulb synringe, and the was handed off to awaiting pediatricians. The placenta was then removed spontaneously, and the uterus was exteriorized and cleared of all clots and debris. The uterine incision was repaired with 1-0 chromic in a running, locked fashion a 2nd layer of the same suture was used to obtain excellent hemostasis. The uterus was returned to the abdomen, and the gutters were cleared of all clots and debris. The bladder flap was closed with 2-0 vicryl and the peritoneum was closed with 3-0 Vicryl in a running fashion, and the fascia reapproximated with 0 Vicryl in a running fashion. The subcutaneous layer was placed with 3 0 Vicryl in an interrupted fashion and the skin was closed with 4-0 biosyn in a running fashion. The patient tolerated the procedure well sponge lap and needle counts were correct x2. 2 g of Ancef were given at commencement of the case. The patient was taken to the recovery room in stable condition. Complications: none Post-operative Condition: stable Disposition: PACU Plan for aftercare: Routine postoperative care with prophylactic lovenox and additional neuro checks and VS.
[2020-05-30] MEDS: KETOROLAC 30 MG/ML VIAL IV ×3 (00:29→12:38)
[2020-05-30] MEDS: LACTATED RINGERS 1,000 ML 100 ML IV (03:16)
[2020-05-30] MEDS: ENOXAPARIN 40 MG/0.4 ML SYRINGE SUBCUT (06:53)
[2020-05-30 07:17] LABS: Add Manual Diff / Slide Review NO; Basophils Absolute Auto 0 /uL (0-100); Basophils Percent Auto 0.2 % (0-2); Eosinophils Absolute Auto 0 /uL (0-450); Eosinophils Percent Auto 0.1 % (2-4); Hematocrit 29.9 % (36-46); Hemoglobin 10.3 g/dL (12.0-16.0); Lymphocytes Absolute Auto 1100 /uL (1100-4500); Lymphocytes Percent Auto 9.6 % (25-40); Mean Corpuscular HGB Conc 34.5 % (30-36); Mean Corpuscular Hemoglobin 31.9 PG (26-34); Mean Corpuscular Volume 92.3 fL (80-100); Monocytes Absolute Auto 700 /uL (0-900); Monocytes Percent Auto 6.4 % (3-14); Neutrophils Absolute Auto 9400 /uL (1500-7000); Neutrophils Percent Auto 83.7 % (50-75); Platelet Count 180 X10^3/uL (150-400); Red Blood Cell Count 3.24 X10^6/uL (4.0-5.2); Red Cell Distribution Width 13.1 % (11.6-14.8); White Blood Cell Count 11.2 X10^3/uL (4.5-11.0)
[2020-05-30 07:28] LABS: Aspartate Aminotransferase 35 IU/L (14-36); BUN Creatinine Ratio 14.3 (6-22); Blood Urea Nitrogen 7 mg/dL (7-17); Estimated Glomerular Filt Rate > 60.0 mL/min (>60); Uric Acid 4.3 mg/dL (2.5-6.2)
[2020-05-30] MEDS: DOCUSATE 250 MG CAPSULE PO (08:48)
--- NOTE | 2020-05-30 13:55 | P.PNOB_ITS ---
Subjective - OB Subjective Patient comments: no complaints, pain well controlled, tolerating diet and flatus present baby status: doing well and nursing well [place] feeding status: exclusively breast feeding Date Patient Seen: 05/30/20 Time Patient Seen: 13:55 Interval history: Patient is a 40-year-old 2 para 2 postop day # 1 status post repeat low-transverse section. Patient is not having any visual or neurologic symptoms. Her pain is well controlled with ibuprofen. Her bleeding is tapering. is going well. Exam Vital Signs (past 8 hours): Oxygen Delivery Method Room Air Oxygen Flow Rate 0 Narrative Exam Narrative: Generally: Patient is sitting up in bed, no acute distress Lungs: Clear to auscultation bilaterally Cardiovascular: Regular rate and rhythm Abdomen: Soft. Good bowel sounds. Fundus: Firm at U -1 Incision: Clean dry and intact with Aquacel dressing Objective Labs Result Diagrams: 05/30/20 06:38 05/30/20 06:38 Labs: Laboratory Results - last 24 hr 05/28/20 05/29/20 05/30/20 21:18 14:00 06:38 WBC 11.2 H RBC 3.24 L Hgb 10.3 L Hct 29.9 L MCV 92.3 MCH 31.9 MCHC 34.5 RDW 13.1 Plt Count 180 Neut % (Auto) 83.7 H Lymph % (Auto) 9.6 L [place] % (Auto) 6.4 Eos % (Auto) 0.1 L Baso % (Auto) 0.2 Neut # (Auto) 9400 H Lymph # (Auto) 1100 [place] # (Auto) 700 Eos # (Auto) 0 Baso # (Auto) 0 BUN Creatinine Estimated GFR BUN/Creatinine Ratio Uric Acid AST ALT 13 Blood Type O Negative Antibody Screen Positive Antibody Identification Anti-D Maternal Bleed 05/30/20 05/30/20 06:38 06:38 WBC RBC Hgb Hct MCV MCH MCHC RDW Plt Count Neut % (Auto) Lymph % (Auto) [place] % (Auto) Eos % (Auto) Baso % (Auto) Neut # (Auto) Lymph # (Auto) [place] # (Auto) Eos # (Auto) Baso # (Auto) BUN 7 Creatinine 0.49 L Estimated GFR > 60.0 BUN/Creatinine Ratio 14.3 Uric Acid 4.3 AST 35 ALT Blood Type Antibody Screen Antibody Identification Maternal Bleed Negative Assessment & Plan Assessment and Plan (1) Brain TIA: Status: Acute (2) Delivered by section: Problem details: Assessment: Postop day # 1 status post repeat low-transverse section doing very well No new neurologic symptoms Normal blood pressure Plan: Patient awaiting diagnostic imaging test to be done tomorrow morning Continue routine postop care Probable discharge May 31, 2020 Status: Acute Time Spent With Patient Time: Total time spent is greater than 50% in coordination of care (as documented) at patient's floor/unit and/or counseling patient: Time with patient: 15-24 minutes
[2020-05-30] MEDS: IBUPROFEN 600 MG TABLET PO (20:08)
[2020-05-30] MEDS: ACETAMINOPHEN 325 MG TABLET 650 MG PO (20:09)
[2020-05-31] MEDS: ACETAMINOPHEN 325 MG TABLET 650 MG PO ×2 (02:56→09:12)
[2020-05-31] MEDS: IBUPROFEN 600 MG TABLET PO ×2 (02:56→09:12)
--- NOTE | 2020-05-31 09:06 | P.PNOB_ITS ---
Subjective - OB Subjective Patient comments: no complaints, pain well controlled, tolerating diet and flatus present baby status: doing well feeding status: exclusively breast feeding Narrative: This patient is a 40yo no P2 POD#2 s/p rCS in the setting of TIA at 38 weeks. Patient reports feeling well, normotensive since being admitted from ED, no neuro symptoms, meeting all postoperative goals. Date Patient Seen: 05/31/20 Time Patient Seen: 09:07 Exam Vital Signs (past 8 hours): 95/67, P 60, T 98.3 Oxygen Delivery Method Room Air Oxygen Flow Rate 0 Const General: cooperative, healthy appearing and comfortable Resp Effort & Inspection: normal respiratory effort Auscultation: clear to auscultation bilaterally Cardio Rate: regular rate Rhythm: regular rhythm GI Palpation: soft and No tender Other: incision c/d/i, fundus firm and well below u Extrem General: normal to inspection Objective Labs Result Diagrams: 05/30/20 06:38 05/30/20 06:38 Labs: Laboratory Results - last 24 hr 05/30/20 06:38 Maternal Bleed Negative Assessment & Plan Assessment and Plan (1) Brain TIA: Status: Acute (2) Delivered by section: Problem details: Assessment: Postop day # 2 status post repeat low-transverse section doing very well No new neurologic symptoms Normal blood pressure, patient presentation not c/w preeclampsia Plan: Patient awaiting echo with bubble study to be done midday today, will have close outpatient f/u with neurology and to be discharged on ppx lovenox dosing Continue routine postop care Status: Acute Plan day: 2 Time Spent With Patient Time: Total time spent is greater than 50% in coordination of care (as doc umented) at patient's floor/unit and/or counseling patient: Time with patient: 15-24 minutes
[2020-05-31] MEDS: ENOXAPARIN 40 MG/0.4 ML SYRINGE SUBCUT (09:11)
[2020-05-31] MEDS: RHO(D) IMMUNE GLOBULIN 1,500 UNIT SYRINGE 1500 UNIT IM (09:11)
--- NOTE | 2020-05-31 09:11 | P.DS_ITS ---
Discharge Providers Provider Date of admission: 05/29/20 00:06 Discharge Date: 05/31/20 Primary care physician: Jael Alan MD Consults: 05/29/20 19:26 Consult to Compress Trucker Routine Comment: Discharge provider: Jael Alan MD Summary Hospital Course Date Patient Seen: 05/31/20 Time Patient Seen: 08:30 Procedures: repeat section Hospital Course: This patient is a previously healthy [id number], who presented to the emergency room at 38 weeks gestation with focal blindness/blurry vision in the right visual field x20-30 minutes which resolved, but was followed by an additional 20-30 minutes of expressive aphasia. This was witnessed by her , who promptly brought her to the emergency room. By the time of their arrival shortly thereafter her symptoms had resolved, and initially elevated blood pressures normalized to her baseline of 110s/60s, which she maintained throughout the rest of her admission. Preeclampsia labs were within normal limits on admission and on repeat the next morning, and the patient had a history of primary section for arrest of descent with her first child, but no other complications or medical problems. The presentation was inconsistent with preeclampsia, and on discussion with Dr. Murphy (hospitalist) and Dr. Felder of neurology, the presumptive diagnosis was TIA, though the etiology remained unclear. The patient was term and the well dated, and given that nothing on the differential would benefit from ongoing and several diagnoses had the potential to progress, the patient was taken for repeat section. Her surgery was uncomplicated, her symptoms never recurred, and she was discharged on POD#2 for outpatient neurologic and routine obstetric follow up. Given concern for underlying coagulopathy contributing to her TIA, she was discharged on prophylactic lovenox. Peripartum Data Infant Delivery Method: Section complications: none [place] 1: Gender: Male Disposition of : home Discharge Diagnosis (1) Brain TIA: Status: Acute (2) Delivered by section: Status: Acute Problem Details: Assessment: Postop day # 2 status post repeat low-transverse section doing very well No new neurologic symptoms Normal blood pressure, patient presentation not c/w preeclampsia Plan: Patient awaiting echo with bubble study to be done midday today, will have close outpatient f/u with neurology and to be discharged on ppx lovenox dosing Continue routine postop care Status at Discharge Cognitive/behavioral status at discharge: oriented Functional status at discharge: independent ambulation Overall status at discharge: patient is progressing back to baseline Time Spent with Patient Time attestation: Total time spent providing and/or coordinating discharge services: Objective Labs Result Diagrams: 05/30/20 06:38 05/30/20 06:38 Labs: Laboratory Results - last 24 hr 05/30/20 06:38 Maternal Bleed Negative Exam Vital Signs (past 8 hours): Oxygen Delivery Method Room Air Oxygen Flow Rate 0 Discharge Plan Discharge Plan Patient Disposition: Home Discharge orders & Medications Prescriptions: New oxycodone 5 mg tablet 5 mg PO Q8H PRN (Reason: pain) Qty: 14 RF: 0 docusate sodium 100 mg capsule 100 mg PO BID Qty: 30 RF: 1 ibuprofen 600 mg tablet 600 mg PO Q8H PRN (Reason: section) Qty: 30 RF: 0 acetaminophen [Tylenol] 325 mg capsule 325 mg PO QID PRN (Reason: pain) Qty: 30 RF: 0 enoxaparin 40 mg/0.4 mL syringe 40 mg SUBCUT DAILY Qty: 4 RF: 4 Continued Multi 1 tab PO DAILY RF: 0 Follow up/Referrals: Jael Alan MD [Primary Care Provider] - 1 Week (Incision check: June 05 @ 1130) Behzad Patel MD [Physician] - 2 Weeks (For f/u of TIA. Can be with Dr. Patel or Dr. Lassiter in 2-4 weeks. [facility]: [phone]) Diet/Activity/Treatments Diet: Regular Activity: Nothing in the vagina for 6 weeks. Avoid heavy lifting for 6 weeks. If you have increasing bleeding, fevers, chills, headaches, nausea, visual changes, trouble speaking, chest pain, or any other symptoms or questions, call or come to the ED. Skin/Wound/Dressing Care Report to your healthcare provider any signs of infection, such as:: chills, fever, night sweats, increased pain, unusual drainage and unusual redness Visit Report/Discharge Packet Instructions: DI for , Enoxaparin Injection Stand Alone Forms: Discharge: Care Visit Report Forms: Patient Portal/API, Stroke Signs & Symptoms Discharge Data Primary Care Provider: Jael Alan Discharges patient from system. Discharge Date/Time: 05/31/20 14:45
[2020-05-31] MEDS: DOCUSATE 250 MG CAPSULE PO (09:12)
--- NOTE | 2020-05-31 12:52 | DI.ECHO.S_ITS ---
Echocardiogram Report + + :Name: LEANNE VINCENT Study Date: 05/31/2020 Height: 68 in : :Hospital Weight: 190 lb : : Gender: Female BSA: 2.0 m2 : :: 1980 Age: 40 yrs BP: 107/52 mmHg: :Reason For Study: TIA : :Ordering Physician: Josey : :Hospitalist Performed By: Gretel High : :Referring: NICHELLE GARZA + + Interpretation Summary Doppler interrogation and injection of saline echo contrast shows no evidence for an interatrial shunt. The left ventricular ejection fraction is normal. Left ventricular wall motion is normal. Diastolic parameters suggest probable normal left ventricular diastolic function and normal filling pressures. The right ventricle is normal in size and function. Both atria are normal in size. No hemodynamically significant valvular abnormalities. The etiology of the TIA could not be determined based on this echocardiogram. Procedure: A two-dimensional transthoracic echocardiogram with color flow and Doppler was performed. The study quality was technically adequate. There is no prior echocardiogram noted for this patient. The patient had occasional PVCs during the exam. The patient was in sinus rhythm with heart rates between 52-68 bpm during the exam. Left Ventricle: The left ventricle is normal in size and wall thickness. There is no ventricular septal defect visualized. The ejection fraction is estimated to be 50-55%. The left ventricular ejection fraction is normal. Left ventricular wall motion is normal. Diastolic parameters suggest probable normal left ventricular diastolic function and normal filling pressures. Right Ventricle: The right ventricle is normal in size and function. Atria: Both atria are normal in size. Doppler interrogation and injection of saline echo contrast shows no evidence for an interatrial shunt. Mitral Valve: The mitral valve is normal in structure and function. There is mild mitral regurgitation. There are multiple regurgitant jets present. Aortic Valve: The aortic valve is trileaflet. The aortic valve opens well. There is trace aortic regurgitation. Tricuspid Valve: The tricuspid valve is normal in structure and function. Pulmonary artery pressures cannot be estimated because of the lack of a measurable TR jet velocity. Pulmonic Valve: The pulmonic valve is not well seen, but is grossly normal. There is a trace or physiologic amount of pulmonic regurgitation. Great Vessels: The aortic root is normal size. The ascending aorta is normal in size. The aortic arch is normal in size. The IVC is of normal diameter and collapses greater than 50% with a sniff. This suggests a low right atrial pressure of 3 mm Hg. Pericardium/ Pleura There is no pericardial effusion. MMode/2D Measurements & Calculations LVIDd: 5.4 cm LVOT diam: 2.1 cm LVIDs: 4.2 cm Ao root diam: 2.4 cm FS: 22.8 % Aortic Jxn: 2.0 cm EPSS: 0.37 cm asc Aorta Diam: 2.8 cm IVSd: 0.75 cm Ao Arch Diam (distal): 2.9 cm LVPWd: 0.78 cm LV baeza. diameter/BSA (cm/m^2): 2.7 LV sys. diameter/BSA (cm/m^2): 2.1 LA A2 area: 22.8 cm2 RA long axis: 5.3 cm LA A4 area: 22.0 cm2 RA area: 19.0 cm2 LA length (vol): 5.4 cm RA vol: 57.7 ml LA vol: 79.2 ml RA : 28.8 ml/m2 LA vol index: 39.6 ml/m2 IVC diam: 1.8 cm RVD1 (basal): 3.8 cm LA Length_phl: 5.8 cm RVD2 (mid): 2.4 cm TAPSE: 2.6 cm Doppler Measurements & Calculations Ao V2 max: 134.1 cm/sec LVOT Max Victor Manuel: 99.1 cm/sec Ao V2 mean: 89.3 cm/sec LV V1 max P.9 mmHg Ao max P.2 mmHg LV V1 VTI: 22.1 cm Ao mean P.7 mmHg JON(I,D): 2.7 cm2 Ao V2 VTI: 27.7 cm JON(V,D): 2.6 cm2 sev ratio: 0.80 JON indexed to BSA (cm^2/m^2): 1.4 MV E max victor manuel: 103.5 cm/sec PA V2 max: 101.2 cm/sec MV A max victor manuel: 45.3 cm/sec PA V2 mean: 64.1 cm/sec MV E/A: 2.3 PA mean P.9 mmHg Med Peak E' Victor Manuel: 9.4 cm/sec PA Accel Time: 0.09 sec E/E' med: 11.0 Lat Peak E' Victor Manuel: 14.8 cm/sec E/E' lat: 7.0 E/e' average: 9.0 MV dec time: 0.18 sec MV P1/2t: 52.9 msec MV P1/2t max victor manuel: 103.9 cm/sec SV(LVOT): 76.1 ml MVA(P1/2t): 4.2 cm2 Electronically signed by: Neymar Mane M.D. on Reading Physician:05/31/2020 02:42 PM
== END 2020-05-31 14:45 | disposition home or self-care (01) | DRG 787 ==
LOC: ED 22:39 → AC 05-29 08:28 → LABOR 05-29 16:38
PROVIDERS: Admitting Provider Obstetrics & Gynecology; Emergency Provider Emergency Medicine; PCP Obstetrics & Gynecology; Visit Provider Obstetrics & Gynecology
PROC: 10D00Z1 Extraction of Products of Conception, Low, Open Approach (ICD-10-PCS; CPT 59514; principal; 2020-05-29 16:45)
DX: O26.893 Other specified pregnancy related conditions, third trimester (principal); G45.9 Transient cerebral ischemic attack, unspecified; O34.219 Maternal care for unspecified type scar from previous cesarean delivery; Z3A.38 38 weeks gestation of pregnancy; Z37.0 Single live birth
CPT/HCPCS: 36415; 59050; 59510; 59514; 70450; 70544; 70551; 80053; 81003; 82570; 83615; 84156; 84450; 84550; 85025; 85461; 85610; 86850; 86870; 86900; 86901; 87635; 93005; 93010; 93306; 99284; J0690; J1650; J1885; J2274; J2405; J2590; J2765; J2790; J3010

== ENCOUNTER → 2022-05-01 11:12 | Outpatient (CLI) | payer OTHER, SELFPAY ==
[2020-05-29 00:09] VITALS: BMI 29.7
[2022-05-02 05:03] LABS: Appearance Urine UA CLEAR; Bilirubin Urine UA NEGATIVE (NEGATIVE); Glucose Urine UA NEGATIVE (Negative); Ketones Urine UA NEGATIVE (NEGATIVE); Leukocyte Esterase Urine UA NEGATIVE (NEGATIVE); Nitrite Urine UA NEGATIVE (Negative); Occult Blood Urine UA TRACE-LYSED (Negative); Protein Urine UA NEGATIVE (Negative); Specific Gravity Urine UA <=1.005 (1.000-1.035); Urobilinogen Urine UA 0.2 E.U./dL (0.2)
[2022-05-02 05:05] LABS: Color Urine UA Straw
[2022-05-02 06:47] LABS: Bacteria Urine None Seen; Culture Indicated Urine Cult Not Indicated; RBC Urine None Seen (0-5/HPF); Squamous Epithelial Cell Urine 0-1 /HPF (0-5/HPF); WBC Urine None Seen (0-5/HPF)
== END ==
PROVIDERS: PCP Obstetrics & Gynecology; Referring Provider Physician Assistant Medical; Visit Provider Physician Assistant Medical
DX: N39.0 Urinary tract infection, site not specified (principal)
CPT/HCPCS: 81001

== ENCOUNTER → 2024-11-11 08:51 | Outpatient (CLI) | payer OTHER, SELFPAY ==
[2020-05-29 00:09] VITALS: BMI 29.7
--- NOTE | 2024-11-11 | DI.MG.S_ITS ---
BILATERAL DIGITAL SCREENING MAMMOGRAM 3D/2D WITH CAD WITH AUGMENTATION: 11/11/2024 CLINICAL: Routine screening. Baseline exam. No prior exams were available for comparison. There are scattered areas of fibroglandular density (category b / 25%-50% glandular tissue). Current study was also evaluated with a Computer Aided Detection (CAD) system. Bilateral breast implants are intact. No significant masses, calcifications, or other findings are seen in either breast. IMPRESSION: NEGATIVE There is no mammographic evidence of malignancy. A 1 year screening mammogram is recommended. Based on the Tyrer Cuzick model (a risk assessment model) the patient's lifetime risk is 10.7% and her 10 year risk is 1.6%. According to the ACR, ACS, and NCCN guidelines, an annual breast MRI exam along with mammogram is recommended if the patient's lifetime risk is 20% or greater. This exam was interpreted at Station ID: [id number]. NOTE: For mammograms, a report in lay terms will be sent to the patient. Approximately 15% of breast malignancies will not be visualized mammographically. In the management of a palpable breast mass, a negative mammogram must not discourage biopsy of a clinically suspicious lesion. Electronically Signed By: Sandy vasquez/kenisha:11/13/2024 09:37:25 letter sent: Normal Exam ACR BI-RADS Category 1: Negative
== END ==
PROVIDERS: Referring Provider Physician Assistant; Visit Provider Physician Assistant
DX: Z12.31 Encounter for screening mammogram for malignant neoplasm of breast (principal)
CPT/HCPCS: 77063; 77067